=== PATIENT | female | born 1975 | race Caucasian/White ===

== ENCOUNTER → 2020-09-05 | Day surgery (SDC) | payer BC ==
[~2020-09-05] MED LIST: FREM225S SQ; FURO40TA4 PO; IV RINGERS,LACTATED 1000ML 1,000 ML IV SCH; LEVO25TA4 PO; LIDOCAINE 2% PF 5 ML VIAL. ONE; METF500T16 PO; PANT40TA77 PO; PROPOFOL 10 MG/ML (20ML) VIAL. IV ONE
[2020-09-05 15:13] VITALS: BP 108/68
== END | disposition home or self-care (01) ==
LOC: ENDOS 12:50
PROVIDERS: ATTEND Internal Medicine Gastroenterology
DX: R13.10 Dysphagia, unspecified (principal); K21.9 Gastro-esophageal reflux disease without esophagitis; E03.9 Hypothyroidism, unspecified; E66.9 Obesity, unspecified; Z90.49 Acquired absence of other specified parts of digestive tract; Z90.710 Acquired absence of both cervix and uterus; Z98.51 Tubal ligation status; Z98.890 Other specified postprocedural states; Z79.899 Other long term (current) drug therapy; Z88.1 Allergy status to other antibiotic agents; Z91.040 Latex allergy status; Z88.8 Allergy status to other drugs, medicaments and biological substances; Z20.822 Contact with and (suspected) exposure to COVID-19
CPT/HCPCS: 43235; 43450; 87426; J2704